=== PATIENT | male | born 1990 | race Asian ===

== ENCOUNTER 2021-01-21 10:26 | Day surgery (SDC) | payer OTHER ==
[~2021-01-21] VITALS: Ht 167.6 cm; Wt 118.4 kg
[2021-01-21] MEDS ORDERED: BUPIVACAINE-MPF/EPI 0.25% 30 ML VIAL INJ ONE (11:43)
[2021-01-21] MEDS ORDERED: fentaNYL citrate 0.05 MG/ML VIAL ONE (13:28)
[2021-01-21] MEDS ORDERED: MEPERIDINE 25 MG/ML SYR ONE (13:29)
[2021-01-21] MEDS ORDERED: SEVOFLURANE 250 ML BTL INH ONE (13:30)
[2021-01-21] MEDS ORDERED: METOCLOPRAMIDE 10 MG/2 ML INJ VIAL ONE (13:55)
[2021-01-21] MEDS ORDERED: PROPOFOL 200 MG/20 ML VIAL IV ONE (13:55)
[2021-01-21] MEDS ORDERED: SUCCINYLCHOLINE CHLORIDE 200 MG/10 ML VIAL IVP ONE (13:55)
[2021-01-21] MEDS ORDERED: LIDOCAINE MPF 2% 100 MG/5 ML VIAL INJ ONE (13:55)
[2021-01-21] MEDS ORDERED: ROCURONIUM 50 MG/5 ML VIAL IV ONE (13:55)
[2021-01-21] MEDS ORDERED: ONDANSETRON 4 MG/2 ML VIAL ONE (13:56)
[2021-01-21] MEDS ORDERED: KETOROLAC 30 MG/ML VIAL ONE (13:56)
[2021-01-21] MEDS ORDERED: DEXAMETHASONE 4 MG/ML VIAL ONE (14:03)
[2021-01-21] MEDS ORDERED: LACTATED RINGERS 1,000 ML IV SCH (14:15)
[2021-01-21] MEDS ORDERED: diphenhydrAMINE 50 MG/ML VIAL IVP PRN (14:15)
[2021-01-21] MEDS ORDERED: MEPERIDINE 25 MG/ML SYR IVP PRN (14:15)
[2021-01-21] MEDS ORDERED: fentaNYL citrate 0.05 MG/ML VIAL IVP PRN (14:15)
[2021-01-21] MEDS ORDERED: oxyCODONE/APAP 5/325 MG 1 TAB TAB PO PRN (14:15)
[2021-01-21] MEDS ORDERED: ONDANSETRON 4 MG/2 ML VIAL IVP PRN (14:15)
[2021-01-21] MEDS ORDERED: HYDROcodone/APAP 5/325 MG 1 TAB TAB PO PRN (14:50)
[2021-01-21] MEDS ORDERED: ONDANSETRON 4 MG/2 ML VIAL IV PRN (14:50)
[2021-01-21] MEDS ORDERED: HYDROmorphone 1 MG/ML AMP IVP PRN (14:50)
[2021-01-21] MEDS ORDERED: MORPHINE SULFATE 2 MG/ML SYR IVP PRN (14:50)
[2021-01-21] MEDS ORDERED: MORPHINE SULFATE 4 MG/ML SYR IV PRN (14:50)
== END 2021-01-21 16:01 | disposition home or self-care (01) ==
LOC: MMU 10:26 → MDS 10:26
PROVIDERS: ATTEND Surgery
DX: R22.1 Localized swelling, mass and lump, neck (principal); D17.0 Benign lipomatous neoplasm of skin and subcutaneous tissue of head, face and neck; Z79.899 Other long term (current) drug therapy
CPT/HCPCS: 13132; 13133; 21554; 71045; 87426; 88305; J0330; J0690; J1100; J1885; J2001; J2175; J2405; J2704; J2765; J3010; J3490; J7060; J7120